=== PATIENT | female | born 1990 | race Caucasian/White ===

== ENCOUNTER → 2020-10-23 | Outpatient (CLI) | payer OTHER | LOC: M LABSMTC 13:33 | PROVIDERS: ATTEND Family Medicine | DX: Z11.52 Encounter for screening for COVID-19 (principal) ==

== ENCOUNTER → 2020-11-16 | Outpatient (REF) | payer OTHER | LOC: M SFHCLERA 15:24 | PROVIDERS: ATTEND Nurse Practitioner Family | DX: N92.6 Irregular menstruation, unspecified (principal) ==

== ENCOUNTER → 2020-11-18 | Outpatient (REF) | payer OTHER | LOC: M PLALAB 15:34 | PROVIDERS: ATTEND Nurse Practitioner Family | DX: N92.6 Irregular menstruation, unspecified (principal) ==

== ENCOUNTER → 2021-01-01 | Outpatient (CLI) | payer OTHER ==
[2021-01-01 16:07] LABS: CREATININE,RANDOM URINE < 13.0 MG/DL; TOTAL PROTEIN,RANDOM URINE < 5.0 MG/DL (0.0-12.0)
[2021-01-01 16:16] LABS: ALT/SGPT 19 U/L (12-78); BILIRUBIN,TOTAL 0.3 MG/DL (0.2-1.0); CREATININE FOR GFR 0.44 MG/DL (0.55-1.30); GLOMERULAR FILTRATION RATE > 60.0 (>60); LDH LACTATE DEHYDROGENASE 128 U/L (84-246); THYROID STIMULATING HORMONE 0.875 uIU/ML (0.358-3.740); URIC ACID 2.5 MG/DL (2.6-6.0)
[2021-01-01 16:56] LABS: HEPATITIS C VIRUS ABY INDEX 0.1 INDEX (<0.8)
[2021-01-01 16:57] LABS: HIV 1&2 SCREEN CENTAUR NEGATIVE (NEGATIVE)
[2021-01-01 17:12] LABS: GC DNA AMPLIFICATION NEGATIVE (NEGATIVE)
== END ==
LOC: M PLALAB 12:05
PROVIDERS: ATTEND Advanced Practice Midwife
DX: Z34.91 Encounter for supervision of normal pregnancy, unspecified, first trimester (principal)

== ENCOUNTER → 2021-03-26 | Outpatient (CLI) | payer OTHER ==
--- NOTE | 2021-03-26 16:47 | REP ---
INDICATION: ANATOMY. COMPARISON: None. TECHNIQUE: Real-time sonographic evaluation of the gravid uterus performed. FINDINGS: Estimated gestational age is23 weeks 0 days, EDC 07/23/20[birth year]. Today's measurements indicate appropriate growth. Presentation: Variable Placenta posterior, grade 0, without evidence of placenta previa. heart rate is recorded at 119 beats per minute. Amniotic fluid is subjectively normal. Closed cervical length is measured at 4.1 cm. Anterior fibroid is suspected 5.4 x 3.6 x 6.0 cm. Biometry chart: BPD: 54 mm, 22 weeks 4 days, 38th percentile. HC: 202 mm, 22 weeks 3 days, 31st percentile AC: 198 mm, 24 weeks 3 days, 79th percentile Femur length: 39 mm, 22 weeks 4 days, 39th percentile HC to AC ratio: 1.02, normal range 1.03-1.22. Estimated weight: 594g, 64th percentile. anatomy: Cranium: Grossly normal Lateral Ventricles/Choroid Plexus: Grossly normal Posterior Fossa/Cerebellum: Grossly normal Nose/lips/profile: Grossly normal Four chamber heart: Grossly normal Right ventricular outflow tract: Grossly normal Left ventricular outflow tract: Grossly normal Left-sided stomach: Grossly normal Kidneys: Grossly normal Bladder: Grossly normal Cord Insertion: Grossly normal 3 vessel cord: Grossly normal Spine: Grossly normal IMPRESSION: Viable single intrauterine gestation as above. <Electronically signed by Avelino Connor > 03/26/21 [id number]
== END ==
LOC: M WHC 13:07
PROVIDERS: ATTEND Obstetrics & Gynecology
DX: O09.292 Supervision of pregnancy with other poor reproductive or obstetric history, second trimester (principal); Z3A.24 24 weeks gestation of pregnancy

== ENCOUNTER → 2021-04-29 | Outpatient (CLI) | payer OTHER ==
[2021-04-29 14:56] LABS: HEMOGLOBIN 9.9 g/dl (12.0-15.5); MEAN CORPUSCULAR HEMOGLOBIN 28.8 pg (27.0-33.0); MEAN CORPUSCULAR HGB CONC 31.9 g/dl (32.0-36.5); MEAN CORPUSCULAR VOLUME 90.1 fl (80.0-96.0); PLATELET COUNT, AUTOMATED 280 10^3/uL (150-450); RED BLOOD COUNT 3.44 10^6/uL (4.00-5.40); WHITE BLOOD COUNT 10.5 10^3/uL (4.0-10.0)
== END ==
LOC: M PLALAB 11:20
PROVIDERS: ATTEND Advanced Practice Midwife
DX: O09.292 Supervision of pregnancy with other poor reproductive or obstetric history, second trimester (principal)

== ENCOUNTER → 2021-06-04 | Outpatient (REF) | LOC: M LABSMTC 13:00 | PROVIDERS: ATTEND Pediatrics | DX: Z11.52 Encounter for screening for COVID-19 (principal) ==

== ENCOUNTER → 2021-06-29 | Outpatient (REF) | payer OTHER | LOC: M SFHCWAGY 17:16 | PROVIDERS: ATTEND Advanced Practice Midwife | DX: O13.9 Gestational [pregnancy-induced] hypertension without significant proteinuria, unspecified trimester (principal) ==

== ENCOUNTER → 2021-06-29 | Outpatient (CLI) | payer OTHER | LOC: M PLALAB 15:37 | PROVIDERS: ATTEND Advanced Practice Midwife | DX: O13.9 Gestational [pregnancy-induced] hypertension without significant proteinuria, unspecified trimester (principal) ==

== ENCOUNTER 2021-07-02 07:29 | Inpatient (IN) | payer OTHER ==
[2021-07-02] VITALS (9 sets, daily range): BP systolic 117–144; BP diastolic 69–96
[~2021-07-02] VITALS: Ht 157.5 cm; Wt 91.7 kg
[2021-07-02] MEDS ORDERED: LACTATED RINGER'S 1000 ML IV STA (08:33)
[2021-07-02] MEDS ORDERED: OXYTOCIN DRIP 30 UNITS in IV 1 EA IV PRN (08:35)
[2021-07-02] MEDS ORDERED: LIDOCAINE 1% MDV 20ML VIAL INFIL PRN (08:35)
[2021-07-02] MEDS ORDERED: METHYLERGONOVINE MALEATE 0.2 MG/ML VIAL (J2210) IM PRN (08:35)
[2021-07-02] MEDS ORDERED: TRANEXAMIC ACID INJection 1,000 MG in NS 100 ML IV PRN (08:35)
[2021-07-02 09:44] LABS: HEMATOCRIT 30.4 % (36.0-47.0); HEMOGLOBIN 9.8 g/dl (12.0-15.5); MEAN CORPUSCULAR HEMOGLOBIN 27.4 pg (27.0-33.0); MEAN CORPUSCULAR HGB CONC 32.2 g/dl (32.0-36.5); MEAN CORPUSCULAR VOLUME 84.9 fl (80.0-96.0); PLATELET COUNT, AUTOMATED 257 10^3/uL (150-450); RED BLOOD COUNT 3.58 10^6/uL (4.00-5.40); WHITE BLOOD COUNT 8.2 10^3/uL (4.0-10.0)
[2021-07-02 10:11] LABS: ALT/SGPT 12 U/L (12-78); BILIRUBIN,TOTAL 0.2 MG/DL (0.2-1.0); CREATININE FOR GFR 0.44 MG/DL (0.55-1.30); CREATININE,RANDOM URINE 17.2 MG/DL; GLOMERULAR FILTRATION RATE > 60.0 (>60); LDH LACTATE DEHYDROGENASE 155 U/L (84-246); TOTAL PROTEIN,RANDOM URINE 5.7 MG/DL (0.0-12.0); URIC ACID 4.6 MG/DL (2.6-6.0)
[2021-07-02] MEDS: miSOPROStol 50MCG 1/2 TABLET PO SCH ×2 (10:26→14:49)
[2021-07-02] MEDS ORDERED: OXYTOCIN 30 UNITS IN 0.9% NaCl 500ML IV BAG (J2590) As Ordered ONE (19:39)
[2021-07-02] MEDS ORDERED: OXYTOCIN DRIP 30 UNITS in IV 1 EA IV SCH (20:40)
[2021-07-03] VITALS (10 sets, daily range): BP systolic 132–196; BP diastolic 77–117
[2021-07-03] MEDS ORDERED: BUTORPHANOL 2 MG/ML INJ (J0595) IV ONE (00:40)
[2021-07-03] MEDS ORDERED: PROMETHAZINE INJ 25 MG/ML VIAL (J2550) IV ONE (00:40)
[2021-07-03] MEDS ORDERED: FENTANYL 2MCG/ML ROPIVACAINE 0.2% IN 0.9% NACL 100ML IVBAG As Ordered ONE (02:34)
[2021-07-03] MEDS ORDERED: METHYLERGONOVINE MALEATE 0.2 MG TAB PO PRN (05:15)
[2021-07-03] MEDS ORDERED: ACETAMINOPHEN TAB 650MG DOSE (2X325MG) PO PRN (05:15)
[2021-07-03] MEDS ORDERED: MEASLES,MUMPS,RUBELLA VACCINE INJ (MMR-II) (90707) SC SCH (05:15)
[2021-07-03] MEDS ORDERED: MOM 30ML SUSPENSION UDC PO PRN (05:15)
[2021-07-03] MEDS ORDERED: IBUPROFEN 600MG TAB PO PRN (05:15)
[2021-07-03] MEDS ORDERED: IBUPROFEN 800 MG TAB PO PRN (05:15)
[2021-07-03] MEDS ORDERED: DOCUSATE SODIUM 100MG CAPSULE PO PRN (05:15)
[2021-07-03] MEDS ORDERED: RHOGAM 300 MCG (1500 IU) INJ (J2790) IM SCH (05:15)
[2021-07-03] MEDS ORDERED: DIBUCAINE 1% OINTMENT 30GM TOP PRN (05:15)
[2021-07-03] MEDS ORDERED: ANUSOL HC CREAM 30GM TOP PRN (05:15)
[2021-07-03] MEDS: PRENATAL VITAMINS CHEWABLE TABLET PO SCH (08:00)
[2021-07-03] MEDS: ACETAMINOPHEN 500 MG TAB PO PRN ×2 (12:23→18:29)
[2021-07-04 06:00] VITALS: BP 131/81
[2021-07-04] MEDS: PRENATAL VITAMINS CHEWABLE TABLET PO SCH (08:50)
[2021-07-04] MEDS: ACETAMINOPHEN 500 MG TAB PO PRN (08:51)
[2021-07-04 18:10] VITALS: BP 140/96
== END 2021-07-04 20:30 | disposition home or self-care (01) | DRG 807 ==
LOC: M LDI 07:29 → M OBS 07-03 05:09
PROVIDERS: ADMIT Advanced Practice Midwife; ATTEND Advanced Practice Midwife
PROC: 3E0P7GC Introduction of Other Therapeutic Substance into Female Reproductive, Via Natural or Artificial Opening (ICD-10-PCS; 2021-07-02)
PROC: 10E0XZZ Delivery of Products of Conception, External Approach (ICD-10-PCS; principal; 2021-07-03)
PROC: 0HQ9XZZ Repair Perineum Skin, External Approach (ICD-10-PCS; 2021-07-03)
DX: O14.04 Mild to moderate pre-eclampsia, complicating childbirth (principal); Z37.0 Single live birth; Z3A.37 37 weeks gestation of pregnancy; O99.02 Anemia complicating childbirth; D64.9 Anemia, unspecified; D25.9 Leiomyoma of uterus, unspecified; O34.13 Maternal care for benign tumor of corpus uteri, third trimester; O69.1XX0 Labor and delivery complicated by cord around neck, with compression, not applicable or unspecified; O70.0 First degree perineal laceration during delivery

== ENCOUNTER → 2021-09-20 | Outpatient (CLI) | payer OTHER ==
[~2021-09-20] MED LIST: ALBU8.5H INH; DOCU-153 PO; EXCETAB33 PO; FERR325T3 PO; MULTTAB20 PO
== END ==
LOC: M LABSMTC 09:38
PROVIDERS: ATTEND Anesthesiology
DX: Z01.818 Encounter for other preprocedural examination (principal); Z11.52 Encounter for screening for COVID-19

== ENCOUNTER 2021-09-24 08:16 | Day surgery (SDC) | payer OTHER ==
[~2021-09-24] VITALS: Ht 157.5 cm; Wt 80.9 kg
[~2021-09-24 08:16] MED LIST changes: +LIDOCAINE 1% MDV 20ML VIAL SQ PRN; +LR 1,000 ML IV ONE
[2021-09-24] MEDS ORDERED: ZYRTTAB8 PO (08:37)
[2021-09-24 08:58] LABS: HEMATOCRIT 40.1 % (36.0-47.0); HEMOGLOBIN 12.9 g/dl (12.0-15.5); MEAN CORPUSCULAR HEMOGLOBIN 28.2 pg (27.0-33.0); MEAN CORPUSCULAR HGB CONC 32.2 g/dl (32.0-36.5); MEAN CORPUSCULAR VOLUME 87.7 fl (80.0-96.0); PLATELET COUNT, AUTOMATED 274 10^3/uL (150-450); RED BLOOD COUNT 4.57 10^6/uL (4.00-5.40); WHITE BLOOD COUNT 5.5 10^3/uL (4.0-10.0)
[2021-09-24] MEDS ORDERED: ROCURONIUM BROMIDE 50 MG/5 ML VIAL As Ordered ONE ×2 (08:58→10:15)
[2021-09-24] MEDS ORDERED: LIDOCAINE 2% 100MG/5ML SDV (FOR ANES.) As Ordered ONE (08:58)
[2021-09-24] MEDS ORDERED: fentaNYL 100 MCG/2 ML INJECTION As Ordered ONE ×2 (08:59→10:17)
[2021-09-24] MEDS ORDERED: dexameTHASONE 4 MG/ML 1ML VIAL (J1100 PER 1MG) As Ordered ONE (08:59)
[2021-09-24] MEDS ORDERED: propofoL 200 MG/20 ML VIAL As Ordered ONE (08:59)
[2021-09-24] MEDS ORDERED: MIDAZOLAM INJ 2MG/2ML VIAL (J2250 PER 1MG) As Ordered ONE (08:59)
[2021-09-24] MEDS ORDERED: ONDANSETRON 4MG/2ML VIAL As Ordered ONE (08:59)
[2021-09-24] MEDS ORDERED: BUPIVACAINE HCL 0.25% 30ML VIAL As Ordered ONE (09:41)
[2021-09-24] MEDS ORDERED: ACETAMINOPHEN 1000MG 100ML IV BTL (OFIRMEV) (J0131 PER 10MG) As Ordered ONE (10:02)
[2021-09-24] MEDS ORDERED: SUGAMMADEX SODIUM 500 MG/5 ML VIAL (BRIDION) As Ordered ONE (10:09)
[2021-09-24] MEDS ORDERED: fentaNYL 100 MCG/2 ML INJECTION IV PRN (11:25)
[2021-09-24] MEDS ORDERED: PERCOCET 5MG/325MG TAB PO PRN ×2 (11:25→11:35)
[2021-09-24] MEDS ORDERED: ONDANSETRON 4MG/2ML VIAL IV PRN (11:25)
[2021-09-24] MEDS ORDERED: LR 1,000 ML IV SCH (11:25)
[2021-09-24] MEDS ORDERED: KETOROLAC 30 MG/ML 1ML VIAL IV SCH (12:00)
[2021-09-24 13:27] VITALS: BP 122/81
== END 2021-09-24 14:00 | disposition home or self-care (01) ==
LOC: M SDC 08:16
PROVIDERS: ATTEND Obstetrics & Gynecology
DX: Z30.2 Encounter for sterilization (principal); J45.909 Unspecified asthma, uncomplicated; Z79.51 Long term (current) use of inhaled steroids; Z79.899 Other long term (current) drug therapy; F41.9 Anxiety disorder, unspecified; F32.9 Major depressive disorder, single episode, unspecified
CPT/HCPCS: 36415; 58661; 81025; 85027; 86850; 86900; 86901; 88302; J0131; J1100; J2250; J2405; J3010

== ENCOUNTER → 2022-06-08 | Outpatient (CLI) | payer OTHER ==
[~2022-06-08] MED LIST changes: +EXCETAB32 PO; -EXCETAB33 PO; -LIDOCAINE 1% MDV 20ML VIAL SQ PRN; -LR 1,000 ML IV ONE; +ZYRTTAB8 PO
[2022-06-08 15:28] LABS: BASO % 0.5 % (0.0-1.0); EOS # 0.3 10^3/uL (0.0-0.5); EOS % 3.9 % (0.0-3.0); HEMATOCRIT 41.4 % (36.0-47.0); HEMOGLOBIN 13.1 g/dl (12.0-15.5); LYMPH # 2.7 10^3/uL (1.5-5.0); LYMPH % 33.8 % (24.0-44.0); MEAN CORPUSCULAR HEMOGLOBIN 28.7 pg (27.0-33.0); MEAN CORPUSCULAR HGB CONC 31.6 g/dl (32.0-36.5); MEAN CORPUSCULAR VOLUME 90.6 fl (80.0-96.0); MONO # 0.6 10^3/uL (0.0-0.8); MONO % 7.5 % (2.0-8.0); NEUTROPHILS # 4.3 10^3/uL (1.5-8.5); NEUTROPHILS % 54.1 % (36.0-66.0); PLATELET COUNT, AUTOMATED 408 10^3/uL (150-450); RED BLOOD COUNT 4.57 10^6/uL (4.00-5.40)
[2022-06-08 15:34] LABS: FREE T4 1.18 NG/DL (0.89-1.76)
[2022-06-08 15:35] LABS: THYROID STIMULATING HORMONE 0.916 uIU/ML (0.55-4.78)
[2022-06-08 15:37] LABS: INR 0.95; PROTHROMBIN TIME 12.9 SECONDS (12.5-14.5)
== END ==
LOC: M PLALAB 12:52
PROVIDERS: ATTEND Student in an Organized Health Care Education/Training Program
DX: R23.3 Spontaneous ecchymoses (principal)

== ENCOUNTER → 2022-06-29 | Outpatient (REF) | payer OTHER | LOC: M SFHCLERA 17:08 | PROVIDERS: ATTEND Student in an Organized Health Care Education/Training Program | DX: J06.9 Acute upper respiratory infection, unspecified (principal) ==

== ENCOUNTER 2022-07-17 00:54 | Emergency (ER) | payer OTHER ==
[~2022-07-17] VITALS: Ht 157.5 cm; Wt 76.4 kg
[2022-07-17 02:51] LABS: BASO % 0.4 % (0.0-1.0); EOS # 0.1 10^3/uL (0.0-0.5); EOS % 1.2 % (0.0-3.0); HEMATOCRIT 42.3 % (36.0-47.0); LYMPH # 1.5 10^3/uL (1.5-5.0); LYMPH % 16.3 % (24.0-44.0); MEAN CORPUSCULAR HGB CONC 30.7 g/dl (32.0-36.5); MEAN CORPUSCULAR VOLUME 91.2 fl (80.0-96.0); MONO # 0.5 10^3/uL (0.0-0.8); MONO % 5.6 % (2.0-8.0); NEUTROPHILS % 76.3 % (36.0-66.0); PLATELET COUNT, AUTOMATED 292 10^3/uL (150-450); RED BLOOD COUNT 4.64 10^6/uL (4.00-5.40); WHITE BLOOD COUNT 9.2 10^3/uL (4.0-10.0)
[2022-07-17 03:13] LABS: LIPASE 29 U/L (12-53)
[2022-07-17] MEDS ORDERED: KETOROLAC 30 MG/ML 1ML VIAL IV ONE (03:40)
[2022-07-17 04:16] LABS: HCG, SERUM QUALITATIVE NEGATIVE (NEGATIVE)
[2022-07-17 04:23] LABS: ALBUMIN 3.6 G/DL (3.2-5.2); ALKALINE PHOSPHATASE 73 U/L (46-116); ALT/SGPT 12 U/L (7.0-40); AST/SGOT 13 U/L (<34); BILIRUBIN,DIRECT 0.1 MG/DL (<0.4); BILIRUBIN,TOTAL 0.5 MG/DL (0.3-1.2); BLOOD UREA NITROGEN 7 MG/DL (9-23); CARBON DIOXIDE LEVEL 27 MMOL/L (20-31); CHLORIDE LEVEL 104 MMOL/L (98-107); CREATININE FOR GFR 0.48 MG/DL (0.55-1.30); GLOMERULAR FILTRATION RATE > 60.0 (>60); GLUCOSE, FASTING 116 MG/DL (60-100); POTASSIUM SERUM 4.4 MMOL/L (3.5-5.1); SODIUM LEVEL 136 MMOL/L (136-145); TOTAL PROTEIN 6.6 G/DL (5.7-8.2)
[2022-07-17] MEDS ORDERED: ISOVUE-370 76% 100ML VIAL As Ordered ONE (04:25)
[2022-07-17] MEDS ORDERED: NAPR-837 PO (05:49)
[2022-07-17 06:02] VITALS: BP 130/80
== END 2022-07-17 06:07 | disposition home or self-care (01) ==
LOC: M ED 00:54
DX: R10.9 Unspecified abdominal pain (principal); J45.909 Unspecified asthma, uncomplicated; F17.200 Nicotine dependence, unspecified, uncomplicated; Z79.82 Long term (current) use of aspirin; Z79.899 Other long term (current) drug therapy
CPT/HCPCS: 74177; 80048; 80076; 81001; 83605; 83690; 84703; 85025; 96374; 99284; J1885

== ENCOUNTER 2022-10-10 09:06 | Emergency (ER) | payer OTHER ==
[~2022-10-10] VITALS: Ht 157.5 cm; Wt 72.7 kg
[~2022-10-10 09:06] MED LIST changes: +NAPR-837 PO
[2022-10-10] MEDS ORDERED: HYDR12.55 (10:26)
[2022-10-10] MEDS ORDERED: FLOV100A (10:26)
[2022-10-10] MEDS ORDERED: LEVOTAB10 (10:26)
[2022-10-10] MEDS ORDERED: PANT20TA6 (10:26)
[2022-10-10] MEDS ORDERED: IBUPROFEN 800 MG TAB PO ONE (11:55)
[2022-10-10 12:52] VITALS: BP 121/75
== END 2022-10-10 13:02 | disposition home or self-care (01) ==
LOC: M ED 09:06
DX: S93.401A Sprain of unspecified ligament of right ankle, initial encounter (principal); W19.XXXA Unspecified fall, initial encounter; Y92.009 Unspecified place in unspecified non-institutional (private) residence as the place of occurrence of the external cause; Y93.89 Activity, other specified; Y99.8 Other external cause status; D64.9 Anemia, unspecified; F32.A Depression, unspecified; F41.9 Anxiety disorder, unspecified; F17.200 Nicotine dependence, unspecified, uncomplicated; Z79.51 Long term (current) use of inhaled steroids; Z79.82 Long term (current) use of aspirin; Z79.899 Other long term (current) drug therapy